=== PATIENT | female | born 1935 | race Caucasian/White ===

== ENCOUNTER 2016-11-22 10:23 | Day surgery (SDC) | payer OTHER ==
--- NOTE | ~2016-11-22 | EGD ---
EGD REPORT [facility] [address] [place] [address] NAME: KRISTAL AMBROCIO : 31 STATUS : REG [facility]#: [id number] AGE: 81 ADM/REG DATE : 11/22/16 MR#: [id number] REPORT SERV DATE: 11/22/16 DICTATED BY: CATA WASHINGTON DATE: 11/22/16 REPORT STATUS : Draft TRANSCRIBED BY: [employer] DATE: 11/22/16 [facility] Center Patient Name: Kristal Ambrocio Date of : 1935 Attending MD: CATA WASHINGTON MD Procedure Date No Time: 11/22/2016 Procedure: Upper GI endoscopy Indications: Epigastric abdominal pain, Heartburn, Suspected esophageal reflux, Melena Referring MD: VIC VILLEGAS MD Medicines: as per anesthesia Complications: No immediate complications. Procedure: Pre-Anesthesia Assessment: - ASA Grade Assessment: III - A patient with severe systemic disease. After obtaining informed consent, the endoscope was passed under direct vision. Throughout the procedure, the patient's blood pressure, pulse, and oxygen saturations were monitored continuously. The GIF [id number] was introduced through the mouth, and advanced to the third part of duodenum. The upper GI endoscopy was accomplished without difficulty. The patient tolerated the procedure. Findings: The examined esophagus was normal. One superficial gastric ulcer was found in the gastric antrum. The lesion was 5 mm in largest dimension. Biopsies were taken with a cold forceps for histology. Localized mild inflammation characterized by erythema was found in the gastric antrum. The cardia and gastric fundus were normal on retroflexion. The examined duodenum was normal. Impression: - Normal esophagus. - Gastric ulcer. Biopsied. - Gastritis. - Normal examined duodenum. Recommendation: - Await pathology results. - Follow an antireflux regimen. - Continue present medications. Procedure Code(s): --- Professional --- 20551, Esophagogastroduodenoscopy, flexible, transoral; EGD REPORT [address] [address] NAME: KRISTAL AMBROCIO : 31 STATUS : [place] [facility] [place] [id number] AGE: 81 ADM/REG DATE : 11/22/16 MR#: [id number] REPORT SERV DATE: 11/22/16 DICTATED BY: CATA WASHINGTON. DATE: 11/22/16 REPORT STATUS : Draft TRANSCRIBED BY: [employer] DATE: 11/22/16 with biopsy, single or multiple Diagnosis Code(s): --- Professional --- K25.9, Gastric ulcer, unspecified as acute or chronic, without hemorrhage or perforation K29.70, Gastritis, unspecified, without bleeding R10.13, Epigastric pain R12, Heartburn K92.1, Melena CPT copyright 2013 [employer]. All rights reserved. The codes documented in this report are preliminary and upon order processing clerk review may be revised to meet current compliance requirements. CATA WASHINGTON MD 11/22/2016 3:02 PM This report has been signed electronically. Number of Addenda: 0 Note Initiated On: 11/22/2016 2:42 PM Scope Withdrawal Time 0 hours 0 minutes 0 [address] [place] [id number]
[~2016-11-22 10:23] MED LIST: ALLEGRA180 PO; ASAB PO; ATEN100 PO; BETAPACE80 PO; CARDU2 PO; CO Q-10100 MG PO; CRANBERRY1 TAB OR; CRANBERRY500 MG OR; DIAZIDE; DYAZIDE1 CAP PO; IMDUR30 PO; L20 PO; L40 PO; LEVOTHYROXIN100 MCG PO; MAGOX4 PO; MAX25 PO; MENEST0.625 MG OR; MIRALAXPKT OR; MIRALAXPKT PO; NEUR100 PO; NOLV10 PO; NORCO1 TA1 PO; NORV5 PO; PREV30 PO; PRILOSEC40 MG PO; PRIN10 PO; PRIN20 PO; PRIN5 PO; PROAIR HFA INH; PROBIOTIC; PROBIOTIC OTC PO; PROBIOTIC PO; PROVHFA INH; SALMON OIL 1000 MG PO; SALMON OIL PO; SAMOLINIC OR; SUCR PO; SYN1 PO; T PO; TAMOXIFEN20 M1 PO; TYLENOL ARTH650 MG PO; VITAMIN B-121000 MC1 SL; VITAMIN D; VITAMIN D31000 UNIT PO; VITE1000 PO; ZOFRAN4 PO
[2017-02-25] MEDS ORDERED: VITAMIN D31000 UNIT PO (13:33)
[2017-02-25] MEDS ORDERED: MEDS (13:53)
== END 2016-11-22 23:59 | disposition home or self-care (01) ==
LOC: DMU 10:23
PROVIDERS: Internal Medicine Gastroenterology
PROC: 0DB68ZX Excision of Stomach, Via Natural or Artificial Opening Endoscopic, Diagnostic (ICD-10-PCS; principal; 2016-11-22 12:00)
DX: K92.1 Melena (principal); R10.13 Epigastric pain; J45.909 Unspecified asthma, uncomplicated; I12.9 Hypertensive chronic kidney disease with stage 1 through stage 4 chronic kidney disease, or unspecified chronic kidney disease; N18.9 Chronic kidney disease, unspecified; I48.0 Paroxysmal atrial fibrillation; I25.10 Atherosclerotic heart disease of native coronary artery without angina pectoris; I25.2 Old myocardial infarction; E03.9 Hypothyroidism, unspecified; M19.90 Unspecified osteoarthritis, unspecified site; J32.9 Chronic sinusitis, unspecified; M79.7 Fibromyalgia; Z88.0 Allergy status to penicillin; Z88.8 Allergy status to other drugs, medicaments and biological substances; Z88.5 Allergy status to narcotic agent; Z79.82 Long term (current) use of aspirin; Z79.899 Other long term (current) drug therapy; Z90.89 Acquired absence of other organs; Z98.890 Other specified postprocedural states; Z98.41 Cataract extraction status, right eye; Z98.42 Cataract extraction status, left eye
CPT/HCPCS: 88305